=== PATIENT | male | born 1965 | race Caucasian/White ===

== ENCOUNTER 2017-03-24 21:29 | Emergency (ER) | payer OTHER ==
[~2017-03-24 21:29] MED LIST: ALLOPURINOL100 MG PO; AMOXIL500 MG PO; BUMETANIDE2 MG PO; CARDIZEM I125 MG/25 IV; CARVEDILOL6.25 MG PO; COLCHICINE0.6 MG PO; COZAAR 25MG TAB25 MG PO; FLONASE120 SPRAY/ NAS; HEPARIN 2525000 UNI1 IV; INDOMETHACIN50 MG PO
--- NOTE | 2017-03-24 22:20 | RADIOLOGY REPORT ---
EXAMINATION: XR CHEST CLINICAL INFORMATION: Cough. Congestion. COMPARISON: Dictated report chest x-ray 09/08/2015. TECHNIQUE: 2 views of the chest were obtained. FINDINGS: Pacemaker leads in right atrium, right ventricle and coronary sinus. Heart size is normal. Cardiac and mediastinal contours are normal. There is no pulmonary vascular congestion. No pleural effusion and there is no pneumothorax. IMPRESSION: No acute abnormality the chest.
--- NOTE | 2017-03-24 23:27 | ED INFLUENZA/URI COMPLAINT ---
History of Present Illness General Chief Complaint: General Adult Stated Complaint: "COUGHING,DIFF.BREATHING SINCE SUNDAY" Source: patient, old records Exam Limitations: no limitations Vital Signs & Intake/Output Vital Signs & Intake/Output Vital Signs Date Time Temp Pulse Resp B/P B/P Pulse O2 O2 Flow FiO2 Mean Ox Delivery Rate 03/25 0006 97.3 83 20 108/74 98 03/24 2324 Room Air 03/24 2136 98.6 87 18 102/66 94 Room Air ED Intake and Output 03/25 0000 03/24 1200 Intake Total 0 Output Total Balance 0 Intake, Oral 0 Allergies Coded Allergies: Penicillins (10/25/16) Uncoded Allergies: UNK CARDIAC MED (SORE NIPPLES 08/18/15) Reconcile Medications Allopurinol 100 MG TAB 1 TAB PO BID GOUT (Reported) Azithromycin (Zithromax) 250 MG TABLET 1 DP PO AD BRONCHITIS 2 the first day followed by 1 for days 2-5 Bumetanide 2 MG TAB 1 TAB PO BID DIURETIC (Reported) Carvedilol 6.25 MG TAB 1 TAB PO BID HEART (Reported) Codeine Phosphate/Guaifenesi (Guaifenesin-Codeine Syrup) 10 MG-100 MG/5 ML LIQUID 10 ML PO Q6HR PRN COUGH Diltiazem HCl (Cardizem Inj. 125 MG/25 ML Inj (IV)) 125 MG/25 ML NERIS 125 MG IV DAILY A fib Run at 7.5ml/hr and hold if SBP is less than 90 Heparin (Heparin-1/2NS 25,000 Units/500) 25,000 UNIT BAG 25,000 UNIT IV Q24 A flutter Indomethacin 50 MG CAP 1 CAP PO TID PAIN with food Losartan (Cozaar) 25 MG TAB 25 MG PO DAILY hypertension Triage Note: TRIAGE; PT TO ED C/O HEADACHE, COUGH WITH MUCUS, AND SOME DIFF BREATHING WITH EXERTION. Triage Nurses Notes Reviewed? yes Onset: Gradual Duration: day(s): (3), constant Timing: recent history Severity: mild, moderate Severity Numbers: 5 Prior Episodes/Possible Cause: occassional episodes No Modifying Factors: none Associated Symptoms: cough HPI: 51-year-old male presents complaining with 3 day history of a productive cough clear sputum associated with rhinorrhea congestion. Patient is also care for the symptoms until today. He does not smoke no shortness of breath no chest pain no dull pain nausea vomiting or diarrhea. He is not taken anything for symptoms. No modifying factors or associated symptoms otherwise (DE MCLAIN) Past History Travel History Traveled to [place] past 21 day No Medical History Any Pertinent Medical History? 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 No (DE MCLAIN) Review of Systems Review of Systems Constitutional: Reports: see HPI. All Other Systems: Reviewed and Negative Comments Review of systems: See HPI, All other systems negative. Constitutional, no chills no fever, no malaise HEENT: no sore throat no congestion, no ear pain Cardiovascular: No chest pain , no palpitation Skin: no rashes, no change in skin Respiratory: No dyspnea no cough no sputum GI: No nausea no vomiting, no diarrhea : No dysuria No hematuria Muscle skeletal: No joint pain, no back pain, no neck pain, Neurologic: No numbness no headache Psych: No stress no depression,. Heme/endocrine: No bruising no bleeding Immunology: No lymphadenopathy (DE MCLAIN) Physical Exam Physical Exam General Appearance: well developed/nourished, no apparent distress, alert Ears, Nose, Throat: normal ENT inspection, moist mucous membrane Comments: Well-developed well-nourished patient in no apparent distress. Head/Face: Atraumatic, no maxillary/frontal sinus tenderness, no facial swelling Eyes: PERRL, EOMI, no conjunctival injection. No nystagmus Ear:External auditory canal and Tympanic membranes clear, no erythema, no FB. Nose: atraumatic.Normal inspection: No bleeding, no septal hematoma Throat: Moist mucous membranes.Pharynx normal. No pharyngeal erythema/exudate seen. No stridor/drooling or assymetry. No swelling or edema. Neck: Supple, no lymphadenopathy, FROM Back: FROM Cardiovascular: Regular rate and rhythms no murmurs rubs or gallops, Respiratory: Chest nontender.There were no bony deformities, no asymmetry. No respiratory distress. Patient speaking in full complete sentences. Breath sounds clear to auscultation bilaterally: NO W/R/R Extremities: full range of motion Neuro: awake, alert, and oriented to person, place and time. There were no obvious focal neurologic abnormalities. Skin: Warm & dry;No appreciable rash on exposed skin Psych: Mood affect normal, normal memory normal judgment. Core Measures Severe Sepsis Present: No Septic Shock Present: No (STEPHANIE FIORE,DE) Progress Differential Diagnosis: influenza, pneumonia, sinusitis, bronchitis asthma Plan of Care: I discussed with the patient at length all of their results. I had an extensive conversation regarding need for close follow up with their primary care physician this week as well as return precautions. I answered all of their questions, they feel comfortable with the plan and follow-up care. I discussed the medications that they will receive with the patient. I gave them signs and symptoms that could indicate an adverse reaction. I have advised them to limit their activities until they can see how they respond to the medication. Diagnostic Imaging: Viewed by Me: Radiology Read. Discussed w/RAD: Radiology Read. Radiology Impression: PATIENT: NELY SOLANO PRESENT AGE: 51 PATIENT ACCOUNT NO: [id number] : 65 LOCATION: [facility] ORDERING PHYSICIAN: FENG DAVILA MD SERVICE DATE: 03/24/17 EXAM TYPE: RAD - XRY -CHEST XRAY, PA AND LATERAL EXAMINATION: XR CHEST CLINICAL INFORMATION: Cough. Congestion. COMPARISON: Dictated report chest x-ray 09/08/2015. TECHNIQUE: 2 views of the chest were obtained. FINDINGS: Pacemaker leads in right atrium, right ventricle and coronary sinus. Heart size is normal. Cardiac and mediastinal contours are normal. There is no pulmonary vascular congestion. No pleural effusion and there is no pneumothorax. IMPRESSION: No acute abnormality the chest. DICTATED BY: HO LEA MD DATE/TIME DICTATED:03/24/172214 PLANT SAFETY ENGINEER:JOSE J DATE/TIME TRANSCRIBED:03/24/172214 CONFIDENTIAL, DO NOT COPY WITHOUT APPROPRIATE AUTHORIZATION. <Electronically signed in Other Vendor System> SIGNED BY: HO LEA MD 03/24/172219 Initial ED EKG: none (DE MCLAIN) Departure Departure Time of Disposition: 2338 Disposition: HOME OR SELF CARE Condition: Stable Clinical Impression Primary Impression: Bronchitis Referrals: PATIENT HAS NO PRIMARY CARE DR (PCP/Family) Additional Instructions: Follow-up with your primary care physician on Sunday Aimee Suggs with codeine as directed use caution as this may make you drowsy no driving or drinking alcohol while taking Departure Forms: Customer Survey General Discharge Information Prescriptions: Current Visit Scripts Codeine Phosphate/Guaifenesi (Guaifenesin-Codeine Syrup) 10 ML PO Q6HR PRN COUGH #200 ML Azithromycin (Zithromax) 1 DP PO AD #6 TAB 2 the first day followed by 1 for days 2-5 (DE MCLAIN) PA/AUTOMOTIVE TIRE WORKER Co-Sign Statement Statement: ED Attending supervision documentation- [] I saw and evaluated the patient. I have also reviewed all the pertinent lab results and diagnostic results. I agree with the findings and the plan of care as documented in the PA's/AUTOMOTIVE TIRE WORKER's documentation. [X] I have reviewed the ED Record and agree with the PA's/AUTOMOTIVE TIRE WORKER's documentation. [] Additions or exceptions (if any) to the PAs/AUTOMOTIVE TIRE WORKER's note and plan are summarized below: [] (LOLA RENNER,FENG)
[2017-03-24] MEDS ORDERED: ZITHROMAX250 M2 PO (23:41)
[2017-03-24] MEDS ORDERED: GUAIFENESIN CO PO (23:41)
[2017-03-25 00:06] VITALS: BP 108/74
== END 2017-03-25 00:07 ==
LOC: ERH 21:29
DX: J40 Bronchitis, not specified as acute or chronic (principal)

== ENCOUNTER 2018-02-18 13:25 | Emergency (ER) | payer OTHER ==
[~2018-02-18] VITALS: Ht 177.8 cm; Wt 195.0 kg
[~2018-02-18 13:25] MED LIST changes: +GUAIFENESIN CO PO; +MOBIC15 M1 PO; +ZITHROMAX250 M2 PO
[2018-02-18 13:35] VITALS: BP 117/75
--- NOTE | 2018-02-18 13:55 | ED UPPER/LOWER EXTREMITY COMPL ---
History of Present Illness General Chief Complaint: Upper Extremity Injury Stated Complaint: R ELBOW PAIN Source: patient, old records Exam Limitations: no limitations Vital Signs & Intake/Output Vital Signs & Intake/Output Vital Signs Date Time Temp Pulse Resp B/P B/P Pulse O2 O2 Flow FiO2 Mean Ox Delivery Rate 02/18 1431 97.7 02/18 1405 97 02/18 1335 97.7 74 20 117/75 96 Room Air Allergies Uncoded Allergies: UNK CARDIAC MED (SORE NIPPLES 08/18/15) Reconcile Medications Allopurinol 100 MG TAB 1 TAB PO BID GOUT (Reported) Azithromycin (Zithromax) 250 MG TABLET 1 DP PO AD BRONCHITIS 2 the first day followed by 1 for days 2-5 Bumetanide 2 MG TAB 1 TAB PO BID DIURETIC (Reported) Carvedilol 6.25 MG TAB 1 TAB PO BID HEART (Reported) Codeine Phosphate/Guaifenesi (Guaifenesin-Codeine Syrup) 10 MG-100 MG/5 ML LIQUID 10 ML PO Q6HR PRN COUGH Diltiazem HCl (Cardizem Inj. 125 MG/25 ML Inj (IV)) 125 MG/25 ML NERIS 125 MG IV DAILY A fib Run at 7.5ml/hr and hold if SBP is less than 90 Heparin (Heparin-1/2NS 25,000 Units/500) 25,000 UNIT BAG 25,000 UNIT IV Q24 A flutter Hydrocodone/Acetaminophen (Mehoopany 5-325 Tablet) 5 MG-325 MG TABLET 1 TAB PO BIDP PRN PAIN Indomethacin 50 MG CAP 1 CAP PO TID PAIN with food Losartan (Cozaar) 25 MG TAB 25 MG PO DAILY hypertension Meloxicam (Mobic) 15 MG TABLET 1 TAB PO DAILY PRN PAIN Triage Note: PT C/O RIGHT ELBOW PAIN. DENIES INJURY Triage Nurses Notes Reviewed? yes Onset: Abrupt Duration: day(s): (2), constant Timing: recent history Severity: moderate Severity Numbers: 6 Pain/Injury Location: Right: Elbow. Method of Injury: unknown Modifying Factors: Improves With: rest. Worsens With: movement. Associated Symptoms: DENIES HPI: 52-year-old male history of gout presents to ER for evaluation complaining of lateral right elbow pain for the past 2 days. He was unable to brush his teeth this morning he states secondary to the pain in his elbow. He denies any known injury or trauma. Pain is worse with range of motion and palpation. He denies any redness warmth fever chills. He denies radiation of the pain. No chest pain shortness of breath. He states he normally gets gout in his knee and that this is unlike him. Past History Travel History Traveled to [place] past 21 day No Medical History Any Pertinent Medical History? 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 No Review of Systems Review of Systems Constitutional: Reports: see HPI. Comments Review of systems: See HPI, All other systems negative. Constitutional, no chills no fever, HEENT: no sore throat no congestion Cardiovascular: No chest pain Skin: no rashes, no change in skin Respiratory: No dyspnea no cough no sputum GI: No nausea no vomiting, Muscle skeletal: SEE HPI Neurologic: , no headache Heme/endocrine: No bruising Immunology: No lymphadenopathy Physical Exam Physical Exam General Appearance: well developed/nourished, alert, awake Comments: Well-developed well-nourished patient in no apparent distress. HEENT: Atraumatic, extraocular motion intact Neck: Supple, FROM Back: FROM Respiratory: No respiratory distress. Patient speaking in full complete sentences. Breath sounds clear to auscultation bilaterally: NO W/R/R Shoulder: Atraumatic/Stable. FROM . Elbow:LROM OF THE R SHOULDER SECONDARY TO PAIN, TTP OVER THE LATERAL EPICONDYLE, NO ERYTHEMA, NO WARMTH Upper arm/Forearm: Atraumatic. Nontender. No edema, 5 out of 5 napper tender strength noted to bilateral upper extremities Hand/Wrist: Atraumatic/stable. Skin intact. FROM Pulses: Normal/equal radial pulses bilaterally. Brisk cap refill Lower Extremities: full range of motion Neuro: awake, alert, and oriented to person, place and time. There were no obvious focal neurologic abnormalities. Skin: Warm & dry;No appreciable rash on exposed skin Psych: Mood affect normal, normal memory normal judgment. Progress Differential Diagnosis: cellulitis, contusion, dislocation, fracture, gout, sprain, tendon injury Plan of Care: Orders Procedure Date/time Status Durable Medical Equipment 02/18 1432 Active XRAYS ORDERED, I discussed with the patient at length all of their results. There is no recent trauma injury or fall. Sling applied. I had an extensive conversation regarding need for close follow up with their primary care physician this week as well as return precautions. I answered all of their questions, they feel comfortable with the plan and follow-up care. I discussed with the patient/family the medications that they will receive. I gave them signs and symptoms that could indicate an adverse reaction. I have advised them to limit their activities until they can see how they respond to the medication. Diagnostic Imaging: Viewed by Me: Radiology Read. Discussed w/RAD: Radiology Read. Radiology Impression: PATIENT: NELY SOLANO PRESENT AGE: 52 PATIENT ACCOUNT NO: [id number] : 65 LOCATION: [facility] ORDERING PHYSICIAN: Pipe FIORE SERVICE DATE: 02/18/18 EXAM TYPE: RAD - XRY- ELBOW, AP & LATERAL, RIGHT EXAMINATION: XR ELBOW, RIGHT CLINICAL INFORMATION: Assess for fracture. Elbow pain. COMPARISON: None. TECHNIQUE: 2 views of the right elbow were obtained. FINDINGS: No fracture or dislocation. Mild hypertrophic changes about the elbow joint without significant cartilage space narrowing. Distal triceps enthesopathy. Possible small elbow joint effusion. IMPRESSION: Suspect hypertrophic changes of the radial head, which is favored over nondisplaced fracture. Mild degenerative changes of the elbow joint. Suspect small elbow joint effusion. If there is high clinical suspicion for nondisplaced fracture, consider further evaluation with elbow MRI. DICTATED BY: Marty Blanco MD DATE/TIME DICTATED:02/18/181440 INSPECTOR FINAL ASSEMBLY ELECTRICAL:JOSE J DATE/TIME TRANSCRIBED:02/18/181440 CONFIDENTIAL, DO NOT COPY WITHOUT APPROPRIATE AUTHORIZATION. <Electronically signed in Other Vendor System> SIGNED BY: Marty Blanco MD 02/18/18 1457 Departure Departure Time of Disposition: 1431 Disposition: HOME OR SELF CARE Condition: Stable Clinical Impression Primary Impression: Lateral epicondylitis of elbow Qualifiers: Laterality: right Qualified Code: M77.11 - Lateral epicondylitis, right elbow Referrals: Unknown (PCP/Family) Additional Instructions: REST, ICE, SLING, TYLENOL OR MOTRIN FOR PAIN. VICODIN FOR BREAKTHROUGH PAIN- USE CAUTION THIS MAY MAKE YOU DROWSY. NO DRIVING OR DRINKING ALCOHOL WHILE TAKING. FOLLOW UP WITH YOUR PMD, OR ORTHOPEDIST DR GOLDMAN IF SYMPTOMS PERSIST. Departure Forms: Customer Survey General Discharge Information Prescriptions: Current Visit Scripts Hydrocodone/Acetaminophen (Mehoopany 5-325 Tablet) 1 TAB PO BIDP PRN PAIN #10 TAB
[2018-02-18] MEDS ORDERED: NORCO 5-325 TA1 EACH PO (14:33)
--- NOTE | 2018-02-18 14:57 | RADIOLOGY REPORT ---
EXAMINATION: XR ELBOW, RIGHT CLINICAL INFORMATION: Assess for fracture. Elbow pain. COMPARISON: None. TECHNIQUE: 2 views of the right elbow were obtained. FINDINGS: No fracture or dislocation. Mild hypertrophic changes about the elbow joint without significant cartilage space narrowing. Distal triceps enthesopathy. Possible small elbow joint effusion. IMPRESSION: Suspect hypertrophic changes of the radial head, which is favored over nondisplaced fracture. Mild degenerative changes of the elbow joint. Suspect small elbow joint effusion. If there is high clinical suspicion for nondisplaced fracture, consider further evaluation with elbow MRI.
== END 2018-02-18 15:29 ==
LOC: ERH 13:25
DX: M77.11 Lateral epicondylitis, right elbow (principal)
CPT/HCPCS: 73070-RT